=== PATIENT | female | born 2000 | race Two or more races ===

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

== ENCOUNTER 2019-02-18 15:28 | Emergency (ER) | payer OTHER ==
[2019-02-18 15:47] VITALS: BP 115/65
--- NOTE | 2019-02-18 15:54 | UC ---
Lower Extremity/Ankle HPI - HPI Summary HPI Summary: fell on steps yesterday and injured left ankle, painful and swollen today - History of Current Complaint Chief Complaint: UCLowerExtremity Stated Complaint: L ANKLE INJURY Time Seen by Provider: 02/18/19 15:38 Hx Obtained From: Patient Hx Last Menstrual Period: January 23, 2019 ?: No - patient states no chance Onset/Duration: Sudden Onset Severity Initially: Severe Severity Currently: Moderate Pain Intensity: 8 Aggravating Factor(s): Standing, Ambulation Alleviating Factor(s): Rest, Elevation, Ice Able to Bear Weight: Yes - Allergies/Home Medications Allergies/Adverse Reactions: Allergies Allergy/AdvReac Type Severity Reaction Status Date / Time No Known Allergies Allergy Verified 05/27/18 16:03 PMH/Surg Hx/FS Hx/Imm Hx Previously Healthy: Yes - Surgical History Surgical History: None - Family History Known Family History: Positive: Non-Contributory - Social History Occupation: Employed Full-time Lives: With Family Alcohol Use: None Substance Use Type: None Smoking Status (MU): Former Smoker - Immunization History Vaccination Up to Date: Yes Review of Systems All Other Systems Reviewed And Are Negative: Yes Constitutional: Positive: Negative Skin: Positive: Negative. Negative: Bruising Respiratory: Positive: Negative Cardiovascular: Positive: Negative Musculoskeletal: Positive: Decreased ROM - L ankle d/t pain Neurological: Positive: Negative Psychological: Positive: Negative Is Patient Immunocompromised?: No Physical Exam Triage Information Reviewed: Yes Appearance: Well-Appearing, No Pain Distress, Well-Nourished Vital Signs: Initial Vital Signs Temp 98.8 F 02/18/19 15:39 Pulse 98 02/18/19 15:39 Resp 16 02/18/19 15:39 BP 115/65 02/18/19 15:39 Pulse Ox 99 02/18/19 15:39 Vital Signs Reviewed: Yes Respiratory Exam: Normal Respiratory: Positive: Lungs clear Cardiovascular Exam: Normal Cardiovascular: Positive: RRR Musculoskeletal: Positive: Strength Intact, ROM Intact Neurological Exam: Normal Psychological Exam: Normal Skin Exam: Normal Diagnostics - Radiology No standard instances Radiology Interpretation Completed By: Radiologist - SOFT TISSUE SWELLING OVER THE LEFT FIBULAR MALLEOLUS WITHOUT UNDERLYING FRACTURE OR DISLOCATION. Lower Extremity Course/Dx - Differential Dx/Diagnosis Differential Diagnosis/HQI/PQRI: Fracture (Closed), Sprain Provider Diagnosis: Ankle sprain Discharge - Sign-Out/Discharge Documenting (check all that apply): Patient Departure All imaging exams completed and their final reports reviewed: Yes - SOFT TISSUE SWELLING OVER THE LEFT FIBULAR MALLEOLUS WITHOUT UNDERLYING FRACTURE - Discharge Plan Condition: Good Disposition: HOME Patient Education Materials: Ankle Sprain (ED) Forms: *Work Release Referrals: Sruthi Coello MD [Primary Care Provider] - Megan Estrdaa MD [Medical Doctor] - 1 Week (if no better) Additional Instructions: ice and elevate leg wear fran and ankle splint for 5-7 days use ibuprofen 400mg - 600mg every 6 hours as needed for pain - Billing Disposition and Condition Condition: GOOD Disposition: Home - Attestation Statements Provider Attestation: I was available for consult. This patient was seen by the CAROLYNN. The patient was not presented to, seen by, or examined by me. -Cali
== END 2019-02-18 16:46 | disposition home or self-care (01) ==
LOC: UCEAST 15:28
DX: S93.402A Sprain of unspecified ligament of left ankle, initial encounter (principal); W10.9XXA Fall (on) (from) unspecified stairs and steps, initial encounter; Y93.79 Activity, other specified sports and athletics; Y92.9 Unspecified place or not applicable; Z87.891 Personal history of nicotine dependence
CPT/HCPCS: 99203; G0463

== ENCOUNTER 2019-08-27 18:45 | Emergency (ER) | payer OTHER ==
--- OUTSIDE RECORDS SUMMARY | 2019-08-27 18:52 | XMS REPORT | Continuity of Care Document ---
:2000 Author Organization [facility] Address [address] [place] [address] Phone Care Team Providers Name Role Phone Judy Catrina YEH Unavailable Unavailable Allergies, Adverse Reactions, Alerts Substance Reaction Status No Known Allergies Active Medications Medication Instructions Dosage Effective Dates Status Comments (start - stop) EContra EZ 1.5 mg 1 tab po within 72 - Active tablet hours unprotected IC Problems Condition Effective Dates (start - Clinical Status Comments stop) Encounter for test, result positive Encntr screen for dis of the bld/bld-form org/immun [facility] Human immunodeficiency virus [HIV] - counseling Encntr screen for infections w sexl mode of transmiss Encounter for oth general cnsl and advice on contraception Dysuria Encounter for oth general cnsl and advice on contraception Encntr screen for infections w sexl mode of transmiss Cystitis, unspecified without hematuria Encounter for removal of intrauterine contraceptive device Encounter for oth general cnsl and advice on contraception Encounter for prescription of emergency contraception Proteinuria, unspecified Candidiasis of vulva and vagina Encounter for routine checking of intrauterine contracep dev Proteinuria, unspecified Dysuria Encntr screen for infections w sexl mode of transmiss Encounter for oth general cnsl and advice on contraception Encounter for routine checking of intrauterine contracep dev Encounter for screening for oth infec/parastc diseases Frequency of micturition Encounter for routine checking of intrauterine contracep dev Urgency of urination Encounter for routine checking of intrauterine contracep dev Acute cystitis with hematuria Encounter for routine checking of intrauterine contracep dev Acute vaginitis Encounter for oth general cnsl and advice on contraception Encounter for insertion of intrauterine contraceptive device Encounter for initial prescription of uterin contracep dev Encntr screen for infections w sexl mode of transmiss Procedures Procedure Date POSITIVE TEST HEMOGLOBIN PREVENTIVE COUNSELING, Under 8 Minutes N.GONORRHOEAE, DNA, AMP PROB CHYLMD DNA, AMP PROBE Lab RH Factor TRICHOMONAS VAGIN, DIR PROBE OFFICE/OUTPATIENT VISIT, EST VAG SHILO, OTHER Medical Services Contraceptive Storage Receipt Poster.Svc. Other Storage Receipt Poster.Svc. STI Storage Receipt Poster.Svc. POS PREG NOT DESIRED REFERRAL FOR MED SERV, ZACH/WKEND/HOLIDAY Results Test Name Date and Time Measure Units Reference Range Abnormal Flag Status Comments Panel Description: Hemoglobin Final Hemoglobin 18:34:07 12.70 gm/dL Final Panel Description: High Sensitivity Urine Test Final High Sensitivity Urine 18:14:26 PositiveInternal Quality Final Test Control: Positive Advance Directives Directive Yes / No Effective Date File Name No information Encounters Encounter Practice Location Reason(s) Diagnoses Date Provider Providers Description For Visit Copied on Encounter OFFICE/OUTPA [facility]ound Encounter for Judy Referring TIENT VISIT, [facility] [place] (chief test, 0-201 Catrina. Provider: EST [facility]) result [address] Judy J, [address], [address] the bld/bld-form [place], St, [place], St, [place], org/[place], [address]. [place], [place] [address], tel:[phone], immunodeficiency [place]. [id number] [place] virus [HIV] tel: tel: counselingEncntr [phone] [id number] screen for infections w sexl mode of transmissEncounte r for oth general cnsl and advice on contraception [facility] DysuriaEncounter White Referring [facility] [place] for oth general 3- Cday. Provider: [facility] cnsl and advice [address] [place], [address], [address] tr screen for [place], St, [place], St, [place], [place], [address]. [place] [address], [id number], transmissCystitis [place]. [place] , unspecified tel:[phone] without hematuria [phone] [facility] Encounter for Parete Referring [facility] [place] removal of Effie. Provider: [facility] intrauterine 9 [address] contraceptive [address] [place], [address], [address] for oth general [place], St, [place], St, [place], [place], [address] [address]. tel:[phone], contraceptionEnco tel:[phone] [place] unter for [id number] tel:[phone] prescription of [id number] emergency contraception [facility] Proteinuria, [facility] [place] unspecified Cady. Provider: [facility] 9 [address] [place] [address] [facility]. [place], [address] [place], [place], [place], [place], [address], [id number], [place]. [place] tel:[phone] [facility] Candidiasis of Guggino Referring [facility] [place] vulva and Kathrin Provider: [facility] vaginaEncounter 9 . [address] for routine [address] [place] F, [place], [address], [address] intrauterine [place], [address], St, [place], contracep [place], [place], dev[place], [address], [address]. [id number], unspecified [place]. tel:[phone] [place] tel:[phone] tel:[phone] [facility] DysuriaEncntr [place] Referring [facility] [place] screen for [place] Provider: [facility] infections w sexl 8 Sueane. Sueane Finger mode of [address] [place], [address] [place], [address] r for oth general St, [address], [place], cnsl and advice [place], [address], [place], [place], [place], [id number], contraceptionEnco [address]. [address]. [place] unter for routine tel:+60 tel:+[phone] tel:[phone] checking of [phone] intrauterine contracep devEncounter for screening for oth infec/parastc diseases [facility] Frequency of Aug- White Referring [facility] [place] micturitionEncoun Cady. Provider: [facility] ter for routine 8 [address] checking of [address] [place], [address], [address] contracep dev [place], St, [place], St, [place], [address]. [place], [address], [id number], [place]. [place] tel:[phone] [facility] Urgency of White Referring Parenthood [place] urinationEncounte Cady. Provider: [facility] for routine 8 [address] checking of [address] [place], [address], [address] contracep [place], St, [place], St, [place], [place], [address]. [place], with hematuria [address], [id number], [place]. [place] tel:+ [phone] [facility] Encounter for May- [facility] [place] routine checking Cady. Southern of intrauterine 7 [address] contracep dev [address] [place], [address] [place], St, [place], [place], [address], [id number], [place]. [place] tel:[phone] [facility] Acute vaginitis May- Parete [facility] [place] . [address] [place], [address] [place], [place], [place], [address]. [id number], tel:+[phone] [place] [phone] tel:[phone] [facility] Encounter for oth Feb-0 Gilberto Referring [facility] [place] general cnsl and [address]. Provider: [facility] advice on 7 [address] contraceptionEnco [place] R, [place], [address], [address] insertion of [place], [address], St, [place], intrauterine [place], [place], [place] [address], [address]. [id number], device [place]. tel:+[phone] [place] tel:+ [phone] tel:[phone] [facility] Encounter for [facility] [place] initial [address] [facility] prescription of 7 [address] uterin contracep [address] [place], [address] for infections w [place], St, [place], [place], [place] [address], [id number], [place]. [place] tel:+ tel:[phone] Family History Family Member Diagnosis Age At Onset 1st degree relative No hx of coronary heart disease (female <65, male <55) 1st degree relative No hx of cancer of breast, colon, endometrium or ovary 1st degree relative No hx of venous thromboembolism Immunizations Vaccine Date Status Comments No information Payers Payer name Insurance type Covered republican ID Authorization(s) Total Care [employer] Options [facility] [id number] Social History Type Description Quantity Date Captured Comments Alcohol Use Details Unknown Caffeine Use Details Unknown Tobacco Use Status Unknown Smoking Status Never smoker Sex Female Vital Signs Date / Height Weight BMI Pulse Blood Temperature Respiratory Body Head BMI Pulse Inhaled Time: Rate Pressure Rate Surface Circumference percentile Ox Ox Area No information Chief Complaint And Reason For Visit Most recent encounter only, dated '07/23/2019 18:10'. Ultrasound (chief complaint) Reason For Referral Reason For Referral No information Plan Of Treatment Date Type Action Status Appointment RATNA SPEAR BOOKED History Of Present Illness Encounter Date Complaint History Of Present Illness No information Functional Status Date Functional Assessment No information Medications Administered Medication Instructions Dosage Effective Dates (start - stop) Status Comments No information Instructions Date Instruction Additional Information No information Assessments Type Assessment Date assessment Encounter for test, result positive assessment Encntr screen for dis of the bld/bld-form org/immun mechnsm assessment Human immunodeficiency virus [HIV] counseling assessment Encntr screen for infections w sexl mode of transmiss assessment Encounter for oth general cnsl and advice on contraception 2018 Goals Health Concern Goal Type Priority Status Date No information Medical Equipment Description Device Lowell Device Identifier Effective Dates (start - stop ) Status No information Mental Status Date Cognitive Assessment Normal Orientation Health Concerns Observation Date No information Concern Status Date No information
--- OUTSIDE RECORDS SUMMARY | 2019-08-27 18:52 | XMS REPORT | Continuity of Care Document ---
:2000 Author Organization [facility] Address [address] [place] [address] Phone Care Team Providers Name Role Phone Judy Catrina YEH Unavailable Unavailable PPSFL, NURSE OR MA Unavailable Unavailable Allergies, Adverse Reactions, Alerts Substance Reaction Status No Known Allergies Active Medications Medication Instructions Dosage Effective Dates Status Comments (start - stop) azithromycin 500 mg ICA: 1 tab po - Active tablet administer in clinic (#1) ibuprofen 400 mg ICA: administer 2 - Active tablet tab PO in clinic, November repeat 1-2 tab po prn following ICA ibuprofen 400 mg 1-2 tab po q 6-8 - Active tablet hrs prn pain (#10) ondansetron 8 mg 1 ODT administer in - Active disintegrating tablet clinic PRN, november repeat x 1 metronidazole 500 mg 1 tab po bid x 7d - Active tablet (#14) MICRhoGAM Administer 250 unit - Active Ultra-Filtered PLUS IM 250 unit (50 mcg) intramuscular syringe EContra EZ 1.5 mg 1 tab po within 72 - No Longer tablet hours unprotected Active IC Problems Condition Effective Dates (start - Clinical Status Comments stop) Encntr for general adult medical exam w/o abnormal findings Encounter for elective termination of Acute vaginitis Encounter for test, result positive Encntr screen for dis of the bld/bld-form org/immun mechnsm Human immunodeficiency virus - [HIV] counseling Encntr screen for infections w sexl [...] for infections w sexl mode of transmiss RhD negative - Active REviewed. Procedures Procedure Date INJECTION DEPO/CEFTRIAXONE INJECTION OR LAB ONLY VISIT EST OTHER Medical Services Career Consultant.Svc. Other Micrhogam Results Test Name Date and Time Measure Units Reference Range Abnormal Flag Status Comments No information Advance Directives Directive Yes / No Effective Date File Name No information Encounters Encounter Practice Location Reason(s) Diagnoses Date Provider Providers Description For Visit Copied on Encounter [facility] Lab Only [facility] [place]. Provider: Of Greater complaint) w/o abnormal 0 [address] [facility], findings Ted Kim J, [address] [facility], [facility], [facility], St, [place], [place], [place], [place], [address]. [id number], [address], tel:[phone] [facility] [id number] tel:+[phone] tel:+60 [facility] [phone] Provider: NURSE OR [place] [facility]. [facility] Encounter for Jul- Nimco Referring [facility] [place] elective Magdalena. Provider: Of Greater termination of 0 [address] [place], pregnancyAcute [place]esh-Na Nimco R, [address], [address], [place], [address], [place], [place], [id number], [address]. [address]. [place] tel:+60 tel:+6072 tel:[phone] [facility] Encounter for Judy Referring [facility] [place] test, 0 Catrina. Provider: Of Greater result 9 [address] [place], positiveEncntr [place] Judy J, [address] for dis of [address], [address], New the bld/bld-form [place], St, [place], [place], org/[place], [address]. [id number], [facility] [address], tel:[phone] [place]. [id number] tel:+[phone] virus [HIV] tel:[phone] counselingEncntr [id number] screen for infections w sexl mode of transmissEncounter for oth general cnsl and advice on contraception [facility] DysuriaEncounter November- White Referring [facility] [place] for oth general Cday. Provider: Of Greater cnsl and advice on 9 [address] [place], contraceptionEncnt Cheesh-Na White, [address], W [place], New infections w sexl [place], St, [place], [place], [place], [address]. [id number], transmissCystitis, [address], [place] unspecified [place]. tel:[phone] without hematuria [phone] [facility] Encounter for Sep- Parete Referring [facility] [place] removal of Effie. Provider: Of Greater intrauterine 9 [address] Eff[address] [place], contraceptive Cheesh-Na Parete, [address], W [address], New for oth general [place], St, [place], [place], [place], [address]. [id number], contraceptionEncou [address]. tel:+[phone] [place] nter for tel:[phone] tel:[phone] prescription of [phone] emergency contraception [facility] Proteinuria, Aug- White Consulting [facility] [place] unspecified Cady. Provider: Of [facility] 9 [address] NURSE [place], Cheesh-Na PPSFL. [address], St, [place], [place], [place], [id number], [address], [place]. tel:[phone] [facility] Candidiasis of [facility] [place] vulva and Of [facility] vaginaEncounter 9 [place], for routine [address], [facility], [place], contracep [id number], devProteinuria, [place] unspecified tel:[phone] [facility] DysuriaEncntr [place] [facility] Provider: Of [facility] infections w sexl 8 Sueane. Sueane [place], mode of [address] transmissEncounter Cheesh-Na [facility], , New for oth general St, [address] [place], [place], cnsl and advice on [place], [address], [id number], contraceptionEncou [place], [place], [place], [place] nter for routine [address]. [address]. tel:+[phone] checking of tel: tel:[phone] intrauterine [id number] contracep [facility] for screening for oth infec/parastc diseases [facility] Frequency of Aug-0 White Referring [facility] [place] micturitionEncount Cady. Provider: Of [facility] er for routine 8 [address] [place], checking of Cheesh-Na White, [address], W [address], New contracep dev [place], St, [place], [place], [place], [place], [address]. [id number], [address], [place]. tel:[phone] [facility] Urgency of White Referring [facility] [place] urinationEncounter Cady. Provider: Of [facility] for routine 8 [address] [place], checking of Cheesh-Na White, [address], [address], New contracep devAcute [place], St, [place], [place], [place], [place], [address]. [id number], hematuria [address], [place]. tel:[phone] [facility] Encounter for White [facility] [place] routine checking Cady. Of Greater of intrauterine 7 [address] [place], contracep dev Cheesh-Na [address], St, [place], [place], [id number], [address], [place]. tel:[phone] [facility] Acute vaginitis Parete Parenthood [place]. Of Greater 7 [address] [place], Cheesh-Na [address], St, [place], [place], [place], [id number], [address]. [place] tel:+ tel:+ [phone] [facility] Encounter for oth Gilberto Referring [facility] [place] general cnsl and Ranjeet. Provider: Of [facility] advice on 7 [address] [place], contraceptionEncou [place] Nimco R, [address] insertion [address], [address], New of intrauterine [place], [address], [place], contrace[place], [place], [id number], device [address], [address]. [place]. tel:+72 tel:+ tel:+ [phone] [facility] Encounter for Borglum [facility] [place] initial Bel. Of Greater prescription of 7 [address] [place], uterin contracep Cheesh-Na [address], St, New for infections w [place], [place], [place], [id number], transmiss [address], [place]. tel:+72 tel:[phone] Family History Family Member Diagnosis Age At Onset 1st degree relative No hx of coronary heart disease (female <65, male <55) 1st degree relative No hx of cancer of breast, colon, endometrium or ovary 1st degree relative No hx of venous thromboembolism Immunizations Vaccine Date Status Comments No information Payers Payer name Insurance type Covered constitution party ID Authorization(s) No information Social History Type Description Quantity Date Captured [...] For Visit Most recent encounter only, dated '07/27/2019 15:50'. Lab Only (chief complaint) Reason For Referral Reason For Referral No information Plan Of Treatment Date Type Action Status No information History Of Present Illness Encounter Date Complaint History Of Present Illness No information Functional Status Date Functional Assessment No information Medications Administered Medication Instructions Dosage Effective Dates (start - stop) Status Comments No information Instructions Date Instruction Additional Information No information Assessments Type Assessment Date assessment Encntr for general adult medical exam w/o abnormal findings Goals Health Concern Goal Type Priority Status Date No information Medical Equipment Description Device [place] Device Identifier Effective Dates (start - stop ) Status No information Mental Status Date Cognitive Assessment No information Health Concerns Observation Date No information Concern Status Date No information
--- OUTSIDE RECORDS SUMMARY | 2019-08-27 18:52 | XMS REPORT | Continuity of Care Document ---
:2000 Author Organization [facility] Address [address] [place] [address] Phone Care Team Providers Name Role Phone Judy VEGETABLE WASHING MACHINE OPERATORCatrina Unavailable Unavailable PPSFL, NURSE OR MA Unavailable [...] negative - Active REviewed. Procedures Procedure Date ASSAY OF BODY FLUID-PH NGHN Default PARACERVICAL BLOCK Tray Fee WET SMEAR OTHER Medical Services Contraceptive Sap Treasury Consultant.Svc. Other Sap Treasury Consultant.Svc. STI METRONIDAZOLE 500 MG #14 AZITHROMYCIN 500 MG #1 Results Test Name Date and Time Measure Units Reference Range Abnormal Flag Status Comments Panel Description: Wet Mount Final Wet Mount 09:32:38 Hyphae/Mary: noBudding yeast: Final noTrich: noClue cells: yes (>=20%)WBCs: yes (moderate)Amine/Whiff test: positivepH: 5.0 Panel Description: Vaginal pH Final Vaginal pH 09:24:48 pH: 5.0. Final Advance Directives Directive Yes / No Effective Date File Name No information Encounters Encounter Practice Location Reason(s) Diagnoses Date Provider Providers Description For Visit Copied on Encounter [facility] Encntr for general Judy Referring [facility] [place] adult medical exam [place]. Provider: Of Greater w/o abnormal 0 [address] Cat[address] [place], findings Ted Kim J, [address], [address], [place], St, [place], [place], [place], [place], [address]. [id number], [address], tel:+[phone] [place]. [id number] tel:+ tel:+[phone] lting [phone] Provider: NURSE OR [place] PPSFL. [facility] In Clinic Encounter for Nimco Referring [facility] [place] elective Magdalena. Provider: Of Greater (chief termination of 0 [address] [place], complaint) pregnancyAcute [place]kha Rinladi R, [address], [address], [place], [address], [place], [place], [place], [place], [place], [id number], [address]. [address]. [place] tel:+60 tel:+72 tel:+ [phone] [facility] Encounter for Judy Referring [facility] [place] test, [place]. Provider: Of Greater result 9 [address] Catrina [place], positiveEncntr Ted Christianson, [address] screen for dis of St, [address], New the bld/bld-form [place], , [place], [place], [place], [place], [address]. [id number], [facility] [address], tel:+[phone] [place] immunodeficiency [place]. [id number] tel:+[phone] virus [HIV] tel:[phone] counselingEncntr [id number] screen for infections w sexl mode of transmissEncounter for oth general cnsl and advice on contraception [facility] DysuriaEncounter White Referring [facility] [place] for oth general Cady. Provider: Of Greater cnsl and advice on 9 [address] [place], contraceptionEncnt Ted Braun, [address] for [address], [address], [place] infections w sexl [place], St, [place], [place], [place], [address]. [id number], transmissCystitis, [address], [place] unspecified [place]. tel:+ without hematuria [phone] [facility] Encounter for Sep- Parete Referring [facility] [place] removal of Effie. Provider: Of [facility] intrauterine 9 [address] [place], contraceptive [place] Parete, [address], [address], New for oth general [place], St, [place], [place], [place], [place], [address]. [id number], contraceptionEncou [address]. tel:+[phone] [place] nter for tel: [phone] tel:+[phone] prescription of [id number] [phone] emergency contraception [facility] Proteinuria, White Consulting [facility] [place] unspecified Cady. Provider: Of [facility] 9 [address] NURSE OR [place], [place] PPSFL. [address], St, [place], [place], [place], [place], [id number], [address], [place]. tel:+ [phone] [facility] Candidiasis of [facility] [place] vulva and Of Greater vaginaEncounter 9 [place], for routine [address], New intrauterine [place], [place], contracep [id number], devProteinuria, [place] unspecified tel:[phone] [facility] DysuriaEncntr [place] Referring [facility] [place] screen for [facility] Provider: Of [facility] infections w sexl 8 Sueane. Sueane [place], mode of [address] transmissEncounter [place], , New for oth general St, [address] [place], [place], cnsl and advice on [place], [address], [id number], contraceptionEncou [place], [place], [place], [place] nter for routine [address]. [address]. tel:+[phone] checking of tel:+60 tel:+[phone] intrauterine [id number] contracep devEncounter for screening for oth infec/parastc diseases [facility] Frequency of Aug-0 White Referring [facility] [place] micturitionEncount Cady. Provider: Of [facility] er for routine 8 [address] [place], checking of [place] White, [address], [address], New contracep dev [place], St, [place], [place], [place], [address]. [id number], [address], [place]. tel:[phone] [facility] Urgency of White Referring [facility] [place] urinationEncounter Cady. Provider: Of [facility] for routine 8 [address] [place], checking of [place] White, [address], [address], New contracep devAcute [place], St, [place], [place], [place], [address]. [id number], hematuria [address], [place]. tel:+ [phone] [facility] Encounter for White [facility] [place] routine checking Cady. Of Greater of intrauterine 7 [address] [place], contracep dev [place] [address], St, [place], [place], [place], [place], [id number], [address], [place]. tel:[phone] [facility] Acute [facility]initis [facility] [place]. Of Greater 7 [address] [place], [place] [address], St, [place], [place], [place], [id number], [address]. [place] tel:+ tel: [phone] [facility] Encounter for oth b-0 Gilberto Referring [facility] [place] general cnsl and Ranjeet. Provider: Of [facility] advice on 7 135 [address]dal[address] [place], contraceptionEncou Cheri Rinaldi R, [address], [address], New of intrauterine [place], [address], [place], [place], [place], [place], [id number], device [address], [address]. [place]. tel:+ tel: tel: [phone] [facility] Encounter for Borglum [facility] [place] initial 8-201 Bel. Of Greater prescription of 7 [address] [place], uterin contracep [place] [address], , [facility] for infections w [place], [place], [place], [id number], transmiss [address], [place]. tel:+[phone] tel:[phone] Family History Family Member Diagnosis Age At Onset 1st degree relative No hx of coronary heart disease (female <65, male <55) 1st degree relative No hx of cancer of breast, colon, endometrium or ovary 1st degree relative No hx of venous thromboembolism Immunizations Vaccine Date Status Comments No information Payers Payer name Insurance type Covered democrat ID Authorization(s) Total Care Todays Options [facility] CI [id number] Social History Type Description Quantity Date Captured Comments Alcohol Use Details Unknown Caffeine Use Details Unknown Tobacco Use Status Unknown Smoking Status Never smoker Sex Female Vital Signs Date / Height Weight BMI Pulse Blood Temperature Respiratory Body Head BMI Pulse Inhaled Time: Rate Pressure Rate Surface Circumference percentile Ox Ox Area 112/58 -2020 /min mm[Hg] 8:46 AM 112/62 14 /min -2020 /min mm[Hg] 9:27 AM 98/58 12 /min -2020 /min mm[Hg] 9:44 AM Chief Complaint And Reason For Visit No information Reason For Referral Reason For Referral No [...] Assessments Type Assessment Date assessment Encounter for elective termination of assessment Acute vaginitis Goals Health Concern Goal Type Priority Status Date No information Medical Equipment Description Device [place] Device Identifier Effective Dates (start - stop ) Status No information Mental Status Date Cognitive Assessment Normal Orientation Health Concerns Observation Date No information Concern Status Date No information
[2019-08-27 19:58] VITALS: BP 103/66
[2019-08-27 20:26] LABS: Influenza A Molecular Negative (Negative); Influenza B Molecular Negative (Negative)
--- NOTE | 2019-08-27 21:25 | UC ---
Throat Pain/Nasal Jose Carlos HPI - HPI Summary HPI Summary: 19 yo, works at [employer], with onset of headache and nasal congestion today. No fever, some cough. Concerned about flu B as her nephews are currently unwell with this. Remote hx of asthma, not currently out of breath and does not regularly treat asthma. - History of Current Complaint Chief Complaint: UCRespiratory Stated Complaint: COUGH, CHILLS, SORE THROAT Time Seen by Provider: 08/27/19 21:13 Hx Obtained From: Patient Hx Last Menstrual Period: unsure Onset/Duration: Sudden Onset, Lasting Hours - about 14 Severity: Moderate Pain Intensity: 0 Cough: None Associated Signs & Symptoms: Positive: Dysphagia, Sinus Discomfort, Nasal Discharge - Epiglottits Risk Factors Epiglottis Risk Factors: Negative - Allergies/Home Medications Allergies/Adverse Reactions: Allergies Allergy/AdvReac Type Severity Reaction Status Date / Time No Known Allergies Allergy Verified 08/27/19 19:57 Home Medications: Home Medications Ibuprofen TAB* [Advil TAB*] 400 mg PO PRN 08/27/19 [History] PMH/Surg Hx/FS Hx/Imm Hx Previously Healthy: Yes Respiratory History: Asthma - mild, no recent treatment. - Surgical History Surgical History: None - Family History Known Family History: Positive: Non-Contributory - Social History Occupation: Employed Full-time Alcohol Use: Occasionally Substance Use Type: Marijuana Smoking Status (MU): Current Some Day Smoker - Immunization History Vaccination Up to Date: Yes Review of Systems All Other Systems Reviewed And Are Negative: Yes Constitutional: Positive: Negative, Fatigue Skin: Positive: Negative Eyes: Positive: Negative ENT: Positive: Sore Throat, Sinus Congestion Respiratory: Positive: Negative Cardiovascular: Positive: Negative Gastrointestinal: Positive: Negative Genitourinary: Positive: Negative Motor: Positive: Negative Neurovascular: Positive: Negative Musculoskeletal: Positive: Myalgia Neurological: Positive: Negative Psychological: Positive: Negative Is Patient Immunocompromised?: No Physical Exam Triage Information Reviewed: Yes Appearance: Ill-Appearing - congested and looks unwell Vital Signs: Initial Vital Signs Temp 98.5 F 08/27/19 19:52 Pulse 91 08/27/19 19:52 Resp 16 08/27/19 19:52 BP 103/66 08/27/19 19:52 Pulse Ox 100 08/27/19 19:52 Eye Exam: Normal ENT: Positive: Pharyngeal erythema, TM dull - bilateral fluid, Tonsillar swelling. Negative: Tonsillar exudate Neck: Positive: Supple, Nontender, No Lymphadenopathy Respiratory: Positive: Lungs clear, Normal breath sounds Cardiovascular: Positive: RRR, No Murmur Musculoskeletal Exam: Normal Neurological Exam: Normal Psychological Exam: Normal Skin Exam: Normal Diagnostics - Laboratory Lab Results: rapid flu and strep negative Throat Pain/Nasal Course/Dx - Course Course Of Treatment: symptomatic treatment of viral uri - Differential Dx/Diagnosis Differential Diagnosis/HQI/PQRI: Influenza, Pharyngitis, Tonsillitis, URI Provider Diagnosis: URI (upper respiratory infection) Discharge ED - Sign-Out/Discharge Documenting (check all that apply): Patient Departure All imaging exams completed and their final reports reviewed: No Studies - Discharge Plan Condition: Stable Disposition: HOME Patient Education Materials: Upper Respiratory Infection (ED) Forms: *Work Release Referrals: No Primary Care Phys,NOPCP [Primary Care Provider] - Additional Instructions: Rapid flu and strep testing are negative. For relief of symptoms, continue ibuprofen 600mg three times daily for headache. Pseudoephedrine 30mg every 6 hours can help to relieve the sinus headache. This is behind the counter (no prescription but the pharmacist dispenses it.). Follow up if you develop fever, cough or worsening shortness of breath. - Billing Disposition and Condition Condition: STABLE Disposition: Home
== END 2019-08-27 21:30 | disposition home or self-care (01) ==
LOC: UCEAST 18:45
DX: J06.9 Acute upper respiratory infection, unspecified (principal); J45.909 Unspecified asthma, uncomplicated; F17.290 Nicotine dependence, other tobacco product, uncomplicated
CPT/HCPCS: 87651; 99211; G0463

== ENCOUNTER 2019-10-03 18:27 | Emergency (ER) | payer OTHER ==
--- OUTSIDE RECORDS SUMMARY | 2019-10-03 18:31 | XMS REPORT | Continuity of Care Document ---
:2000 Author Organization [facility] Address [address] [place] [address] Phone Care Team Providers Name Role Phone Cady Braun NP Unavailable Unavailable Allergies, Adverse Reactions, Alerts Substance Reaction Status No Known Allergies Active Medications Medication Instructions Dosage Effective Dates Status Comments (start - stop) ParaGard T 380A 380 - Active square mm intrauterine device azithromycin 500 mg ICA: 1 tab po - No Longer tablet administer in Active clinic (#1) ibuprofen 400 mg ICA: administer 2 - No Longer tablet tab PO in clinic, Active may repeat 1-2 tab po prn following ICA ibuprofen 400 mg 1-2 tab po q 6-8 - No Longer tablet hrs prn pain (#10) Active ondansetron 8 mg 1 ODT administer in - No Longer disintegrating tablet clinic PRN, november Active repeat x 1 Problems Condition Effective Dates (start - Clinical [...] negative - Active REviewed. Procedures Procedure Date Method Initiation OTHER Medical Services Contraceptive Haul Cane Brakeman.Svc. Other Haul Cane Brakeman.Svc. STI IUD -PARAGARD INSERT INTRAUTERINE DEVICE BLOOD PRESSURE Height/Weight Results Test Name Date and Time Measure Units Reference Range Abnormal Flag Status Comments No information Advance Directives Directive Yes / No Effective Date File Name No information Encounters Encounter Practice Location Reason(s) Diagnoses Date Provider Providers Description For Visit Copied on Encounter [facility] White Referring [place] Cady. Provider: Of Greater 0 [address] [place], Ted Braun, [address] [facility], [facility], [facility], , Counselor, [place], [place], [address]. [id number], [address], [place]. tel:[phone] [facility] Encntr for general Judy [facility]erring [facility] exam [place]. Provider: Of Greater w/o abnormal 0 [address] Karel Mcelroy, abilio Christianson, [address], W [place] , [facility], , Counsel[place], [place], [place], [place], [address]. [id number], [id number], tel:[phone] [place]. [id number] tel:+[phone] tel:[phone] lting [phone] Provider: NURSE OR [place] [facility]. [facility] Encounter for Nimco Referring Parenthood Counselor elective Magdalena. Provider: Of Greater termination of 0 [address] [place], pregnancyAcute [place] Nimco R, [address], [address], [place] Counselor, [address], [place], [place], [id number], [address]. [address]. [place] tel:+60 tel:+[phone] tel:[phone] [facility] Encounter for Judy Referring Parenthood Counselor test, 0-201 Catrina. Provider: Of Greater result 9 [address] [place], positiveEncntr Ted Kim J, [address] for dis of St, W [address], New the bld/bld-form Counselor, St, Counselor, [place], [place], org/[place], [address]. [id number], mechnsmHuman [address], tel:[phone] [place] immunodeficiency [place]. [id number] tel:[phone] virus [HIV] tel:[phone] counselingEncntr [id number] screen for infections w sexl mode of transmissEncounter for oth general cnsl and advice on contraception [facility] DysuriaEncounter November- White Referring Parenthood Counselor for oth general 3- Cady. Provider: Of Greater cnsl and advice on 9 [address] [place], contraceptionEncnt [place] White, [address] for [address], W [address], New infections w sexl Counselor, , Counselor, [place], [place], [place], [address]. [id number], transmissCystitis, [address], [place] unspecified [place]. tel:[phone] without hematuria [phone] [facility] Encounter for Parete Referring Parenthood Counselor removal of Effie. Provider: Of Greater intrauterine 9 [address] [place], contraceptive Hus[place] Parete, [address], [address], New for oth general Counselor, St, Counselor, [place], [place], [place], [address]. [id number], contraceptionEncou [address]. tel:[phone] [place] nter for tel:[phone] tel:[phone] prescription of [phone] emergency contraception [facility] Proteinuria, White Consulting Parenthood Counselor unspecified Cady. Provider: Of [facility] 9 [address] NURSE OR [place], [place] [facility]. [address], St, New Counsel[place], [place], [place], [place], [id number], [address], [place]. tel:[phone] [facility] Candidiasis of [facility] vulva and Of [facility] vaginaEncounter 9 [place], for routine [address], [place] intrauterine [place], [place], contracep [id number], devProteinuria, [place] unspecified tel:[phone] [facility] DysuriaEncntr Hemmer Referring Parenthood Counselor screen for [facility] Provider: Of [facility] infections w sexl 8 Sueane. Sueane [place], mode of [address] transmissEncounter [place], St, New for oth general St, [address] [place], [place], cnsl and advice on Counselor, [address], [id number], contraceptionEncou [place], [place], [place] nter for routine [address]. [address]. tel:+[phone] checking of tel:+ tel:[phone] intrauterine [id number] contracep devEncounter for screening for oth infec/parastc diseases [facility] Frequency of Aug- White Referring Parenthood Counselor micturitionEncount Cady. Provider: Of [facility] er for routine 8 [address] [place], checking of [place] White, [address], [address], New contracep dev Counselor, St, Counsel[place], [place], [place], [place], [address]. [id number], [address], [place]. tel:[phone] [facility] Urgency of White Referring Parenthood Counselor urinationEncounter Cady. Provider: Of [facility] for routine 8 [address] [place], checking of [place] White, [address], [address], New contracep devAcute Counselor, St, [place], [place], [place], [address]. [id number], hematuria [address], [place]. tel:[phone] [facility] Encounter for White Parenthood Counselor routine checking Cady. Of Greater of intrauterine 7 [address] [place], contracep dev Hus[place] [address], St, [place], [place], [id number], [address], [place]. tel:[phone] [facility] Acute vaginitis Parete Parenthood Counselor Effie. Of Greater 7 [address] [place], [place] [address], St, [place], [place], [place], [id number], [address]. [place] tel:+ tel:[phone] [facility] Encounter for oth Gilberto Referring Parenthood Counselor general cnsl and Ranjeet. Provider: Of [facility] advice on 7 [address] [place], contraceptionEncou Cheri Rinaldi R, [address], [address], New of intrauterine [place], [address], [place], [place], [place], [id number], device [address], [address]. [place]. tel:+72 tel:+72 tel:[phone] [facility] Encounter for Borglum Parenthood Counselor initial Bel. Of Greater prescription of 7 [address] [place], uterin contracep Huslia [address], St, New for infections w Counsel[place], [place], [place]l [place], [id number], transmiss [address], [place]. tel:[phone] tel: [phone] Family History Family Member Diagnosis Age At Onset 1st degree relative No hx of coronary heart disease (female <65, male <55) 1st degree relative No hx of cancer of breast, colon, endometrium or ovary 1st degree relative No hx of venous thromboembolism Immunizations Vaccine Date Status Comments No information Payers Payer name Insurance type Covered democrat ID Authorization(s) Total Care Todays Options [facility] CI [id number] Social History Type Description Quantity Date Captured Comments Alcohol Use Details Unknown Caffeine Use Details Unknown Tobacco Use Status Unknown Smoking Status Never smoker Sex Female Vital Signs Date / Height Weight BMI Pulse Blood Temperature Respiratory Body Head BMI Pulse Inhaled Time: Rate Pressure Rate Surface Circumference percentile Ox Ox Area 100/70 mm[Hg] 4:52 PM Chief Complaint And Reason For Visit No [...] Information No information Assessments Type Assessment Date No information Goals Health Concern Goal Type Priority Status Date No information Medical Equipment Description Device [place] Device Identifier Effective Dates (start - stop ) Status No information Mental Status Date Cognitive Assessment No information Health Concerns Observation Date No information Concern Status Date No information
--- OUTSIDE RECORDS SUMMARY | 2019-10-03 18:31 | XMS REPORT | Continuity of Care Document ---
:1999 Author Organization [facility] Address [address] [place] [address] Phone Care Team Providers Name Role Phone Aparna RUBA Cady Unavailable Unavailable Allergies, Adverse Reactions, Alerts Substance [...] Date Method Initiation OTHER Medical Services Contraceptive Rn Relief Charge.Svc. Other Rn Relief Charge.Svc. STI IUD -PARAGARD INSERT INTRAUTERINE DEVICE BLOOD PRESSURE Height/Weight Results Test Name Date and Time Measure Units Reference Range Abnormal Flag Status Comments No information Advance Directives Directive Yes / No Effective Date File Name No information Encounters Encounter Practice Location Reason(s) Diagnoses Date Provider Providers Description For Visit Copied on Encounter [facility] White Referring [facility]. Provider: Of Greater 0 [address] [place], Ted Braun, [address] 26 [facility], [facility], [facility], , [place], [place], [place], [place], [address]. [id number], [address], [place]. tel:[phone] [facility] Encntr for general Judy [facility] [place]. Provider: Of Greater w/o abnormal 0 [address] [place], abilio Christianson, [address] [facility] [address], W [place] , [facility], , [place], [place], [place], [place], [address]. [id number], [address], tel:[phone] [place]. [id number] tel:+[phone] tel:[phone] lting [phone] Provider: NURSE OR [place] [facility]. [facility] Encounter for Nimco Referring Parenthood [place] elective Magdalena. Provider: Of Greater termination of 0 [address] [place], pregnancyAcute [place] Nimco R, [address], [address], [place], [address], [place], [place], [place], [place], [place], [id number], [address]. [address]. [place] tel:+60 tel:+6072 tel:[phone] [facility] Encounter for Judy Referring Parenthood [place] test, 0- Catrina. Provider: Of Greater result 9 [address] [place], positiveEncntr Ted Kim J, [address] screen for dis of St, [address] [place] [address], New the bld/bld-form [place], St, [place], [place], [place], [place], [address]. [id number], mechnsmHuman [address], tel:[phone] [place] immunodeficiency [place]. [id number] tel:[phone] virus [HIV] tel:[phone] counselingEncntr [id number] screen for infections w sexl mode of transmissEncounter for oth general cnsl and advice on contraception [facility] DysuriaEncounter November- White Referring Parenthood [place] for oth general 3 Cady. Provider: Of Greater cnsl and advice on 9 [address] [place], contraceptionEncnt [place] White, [address], [address] [place], New infections w sexl [place], , [place], [place], [place], [address]. [id number], transmissCystitis, [address], [place] unspecified [place]. tel:[phone] without hematuria [phone] [facility] Encounter for Sep- Parete Referring Parenthood [place] removal of Effie. Provider: Of Greater intrauterine 9 [address] [place], contraceptive [place] Parete, [address], [address] [place] [address], New for oth general [place], St, [place], [place], [place], [place], [address]. [id number], contraceptionEncou [address]. tel:[phone] [place] nter for tel:[phone] tel:[phone] prescription of [phone] emergency contraception [facility] Proteinuria, White Consulting Parenthood [place] unspecified Cady. Provider: [facility] 9 [address] NURSE OR [place], [place] [facility]. [address], St, [place], [place], [place], [place], [id number], [address], [place]. tel:[phone] [facility] vulva and [facility] vaginaEncounter 9 [place], for routine [address], [place] intrauterine [place], [place], contracep [id number], devProteinuria, [place] unspecified tel:[phone] [facility] DysuriaEncntr [place] Referring Parenthood [place] screen for [facility] Provider: Of [facility] infections w sexl 8 Sueane. Sueane [place], mode of [address] transmissEncounter [place], St, New for oth general St, [address] [place], [place], cnsl and advice on [place], [address], [id number], contraceptionEncou [place], [place], [place], [place]ter for routine [address]. [address]. tel:+[phone] checking of tel:+60 tel:[phone] intrauterine [id number] contracep devEncounter for screening for oth infec/parastc diseases [facility] Frequency of Aug- White Referring Parenthood [place] micturitionEncount Cady. Provider: Of [facility] er for routine 8 [address] [place], checking of [place] White, [address], [address] [place] [address], New contracep dev [place], St, [place], [place], [place], [place], [address]. [id number], [address], [place]. tel:[phone] [facility] Urgency of White Referring Parenthood [place] urinationEncounter Cady. Provider: Of [facility] for routine 8 [address] [place], checking of [place] White, [address], [address] [place], New contracep devAcute [place], St, [place], [place], [place], [address]. [id number], hematuria [address], [place]. tel:[phone] [facility] Encounter for White Parenthood [place] routine checking Cady. Of Greater of intrauterine 7 [address] [place], contracep dev [place] [address], St, [place], [place], [place], [place], [id number], [address], [place]. tel:[phone] [facility] Acute vaginitis Parete Parenthood [place] Effie. Of Greater 7 [address] [place], [place] [address], St, [place], [place], [place], [place], [id number], [address]. [place] tel:+ tel:[phone] [facility] Encounter for oth Gilberto Referring Parenthood [place] general cnsl and Ranjeet. Provider: Of [facility] advice on 7 [address] [place], contraceptionEncou Cheri Rinaldi R, [address], [address], New of intrauterine [place], [address], [place], [place], [place], [place], [id number], device [address], [address]. [place]. tel:+72 tel:+72 tel:[phone] [facility] Encounter for Borglum Parenthood [place] initial Bel. Of Greater prescription of 7 [address] [place], uterin contracep [place] [address], St, New for infections w [place], [place], [place], [id number], transmiss [address], [place]. tel:[phone] tel: [phone] Family History Family Member Diagnosis Age At Onset 1st degree relative No hx of coronary heart disease (female <65, male <55) 1st degree relative No hx of cancer of breast, colon, endometrium or ovary 1st degree relative No hx of venous thromboembolism Immunizations Vaccine Date Status Comments No information Payers Payer name Insurance type Covered alliance party ID Authorization(s) Total Care Todays Options [facility] [id number] Social History Type Description Quantity Date Captured Comments Alcohol Use Details Unknown Caffeine Use Details Unknown Tobacco Use Status Unknown Smoking Status Never smoker Sex Female Vital Signs Date / Height Weight BMI Pulse Blood Temperature Respiratory Body Head BMI Pulse Inhaled Time: Rate Pressure Rate Surface Circumference percentile Ox Ox Area 10070 mm[Hg] 4:52 PM Chief Complaint And Reason [...] Date No information Medical Equipment Description Device Joiner Device Identifier Effective Dates (start - stop ) Status No information Mental Status Date Cognitive Assessment No information Health Concerns Observation Date No information Concern Status Date No information
[2019-10-03 19:49] VITALS: BP 112/61
--- NOTE | 2019-10-03 21:00 | UC ---
Throat Pain/Nasal Jose Carlos HPI - HPI Summary HPI Summary: WOKE UP THIS MORNING WITH SORE THROAT AND PAIN WITH SWALLOWING. NO FEVER, COUGH. COWORKER HAS STREP. - History of Current Complaint Chief Complaint: UCRespiratory Stated Complaint: THROAT COMPLAINT Time Seen by Provider: 10/03/19 20:47 Hx Obtained From: Patient Hx Last Menstrual Period: 10/01/19 Onset/Duration: Sudden Onset, Lasting Hours, Still Present Severity: Moderate Pain Intensity: 3 Pain Scale Used: 0-10 Numeric Cough: None Associated Signs & Symptoms: Positive: Negative - Allergies/Home Medications Allergies/Adverse Reactions: Allergies Allergy/AdvReac Type Severity Reaction Status Date / Time No Known Allergies Allergy Verified 10/03/19 19:50 Home Medications: Home Medications NK [No Home Medications Reported] 10/03/19 [History Confirmed 10/03/19] PMH/Surg Hx/FS Hx/Imm Hx Respiratory History: Asthma - Surgical History Surgical History: None - Family History Known Family History: Positive: Non-Contributory - Social History Alcohol Use: Occasionally Substance Use Type: Marijuana Smoking Status (MU): Current Some Day Smoker - Immunization History Vaccination Up to Date: Yes Review of Systems All Other Systems Reviewed And Are Negative: Yes Constitutional: Positive: Negative ENT: Positive: Sore Throat Respiratory: Positive: Negative Cardiovascular: Positive: Negative Gastrointestinal: Positive: Negative Physical Exam Triage Information Reviewed: Yes Appearance: Well-Appearing, No Pain Distress, Well-Nourished Vital Signs: Initial Vital Signs Temp 97.6 F 10/03/19 19:44 Pulse 73 10/03/19 19:44 Resp 12 10/03/19 19:44 BP 112/61 10/03/19 19:44 Pulse Ox 100 10/03/19 19:44 Laboratory Tests 10/03/19 21:01 Group A Strep Rapid Negative Vital Signs Reviewed: Yes Eyes: Positive: Conjunctiva Clear ENT: Positive: Hearing grossly normal, Pharynx normal, TMs normal, Other - PROMINENT THYROID. Negative: Tonsillar swelling, Tonsillar exudate Neck: Positive: Supple, Nontender, No Lymphadenopathy Respiratory Exam: Normal Cardiovascular Exam: Normal Abdomen Description: Positive: Soft Musculoskeletal: Positive: No Edema Neurological: Positive: Alert Psychological: Positive: Age Appropriate Behavior Skin: Negative: Rashes Throat Pain/Nasal Course/Dx - Course Course Of Treatment: STREP NEGATIVE. LIKELY VIRALLY MEDIATED SYMPTOMS THAT SHOULD RESOLVE ON THEIR OWN WITH TIME. REST, HYDRATE, OTC MEDS NEEDED. PROMINENT THYROID ON EXAM TODAY. PATIENT ENCOURAGED TO ESTABLISH WITH A PCP AND FOLLOW-UP ON THIS. - Differential Dx/Diagnosis Provider Diagnosis: Acute pharyngitis Discharge ED - Sign-Out/Discharge Documenting (check all that apply): Patient Departure All imaging exams completed and their final reports reviewed: No Studies - Discharge Plan Condition: Stable Disposition: HOME Patient Education Materials: Pharyngitis (ED) Forms: *Work Release Referrals: [facility] [Outside] - If Needed Additional Instructions: STREP NEGATIVE. YOUR SYMPTOMS ARE LIKELY VIRALLY MEDIATED AND SHOULD RESOLVE ON THEIR OWN WITH TIME. NO INDICATION FOR ANTIBIOTICS AT PRESENT. REST, HYDRATE, OTC MEDS NEEDED. SEEK FOLLOW-UP IF YOU ARE NOT IMPROVING OVER THE NEXT 1-2 WEEKS. ON EXAM YOU WERE FOUND TO HAVE A PROMINENT THYROID GLAND. I RECOMMEND YOU ESTABLISH WITH A PCP TO FURTHER EVALUATE. CALL THE NUMBER BELOW FOR ASSISTANCE IN ESTABLISHING WITH A PCP An additional resource available to assist in finding the appropriate physician for your health care needs is the [facility] ([facility]). You may contact them by calling [phone]. - Billing Disposition and Condition Condition: STABLE Disposition: Home
== END 2019-10-03 21:42 | disposition home or self-care (01) ==
LOC: UCEAST 18:27
DX: J02.9 Acute pharyngitis, unspecified (principal); J45.909 Unspecified asthma, uncomplicated; F17.200 Nicotine dependence, unspecified, uncomplicated
CPT/HCPCS: 87651; 99211; G0463